=== PATIENT | female | born 1950 | race African-American/Black ===

== ENCOUNTER 2019-02-04 16:46 | Emergency (ER) | payer OTHER ==
[2019-02-04 18:07] VITALS: BP 120/78; PULSE 92; TEMP 98.6; BMI 30.4
[2019-02-04 18:49] LABS: BLOOD UREA NITROGEN 35.2 mg/dL (7-18); CALCIUM 9.6 mg/dL (8.5-10.1); CREATININE 1.3 mg/dL (0.55-1.3); POTASSIUM 4.6 mmol/L (3.5-5.1)
[2019-02-04 19:00] LABS: BASO % 0.4 % (0-2.0); EOS % 0.4 % (0-4.5); HEMATOCRIT 38.4 % (32.4-45.2); HEMOGLOBIN 12.7 GM/dL (10.7-15.3); MCHC 33.2 g/dl (32.0-36.0); MEAN CELL VOLUME 90.4 fl (80-96); MEAN PLT VOLUME 8.5 fl (7.5-11.1); MONO % 5.1 % (3.8-10.2); NEUT % 78.1 % (42.8-82.8); PLATELET COUNT 331 K/MM3 (134-434); RBC 4.24 M/mm3 (3.60-5.2); RDW 13.5 % (11.6-15.6); WHITE BLOOD COUNT 10.5 K/mm3 (4.0-10.0)
[2019-02-04] MEDS ORDERED: ONDANSETRON 4 MG/2 ML VIAL IVPB ONE (19:13)
[2019-02-04] MEDS ORDERED: ONDANSETRON 4 MG/2 ML VIAL ONE (19:29)
[2019-02-04] MEDS ORDERED: SODIUM CHLORIDE 1,000 ML IV STA (21:12)
--- NOTE | 2019-02-04 22:21 | PDOC ---
Documentation entered by Kevin Martinez SCRIBE, acting as scribe for Chiqui Hackett MD. Chiqui Hackett MD: This documentation has been prepared by the Juan james Elijah, SCRIBE, under my direction and personally reviewed by me in its entirety. I confirm that the documentation accurately reflects all work, treatment, procedures, and medical decision making performed by me. History of Present Illness - General Chief Complaint: Blood Sugar Problem Stated Complaint: VOMITING Time Seen by Provider: 02/04/19 18:35 History Source: Patient Exam Limitations: No Limitations - History of Present Illness Initial Comments: 02/04/19 18:50 Patient is a 68 year old female with a significant medical history of IDDM, HTN and DKA (Admitted in 2009, 2014) who presents to the ED via EMS with a near syncopal episode. Patient reports that they were outside talking with friends and while doing so had one episode of vomiting and began to feel "out of it." Patient notes that they have been feeling fine for the last few days but notes today that her glucose is elevated to the 400s. Denies Head Trauma, SOB, CP, and confusion. Allergies: Tetracycle Past History - Past Medical History Allergies/Adverse Reactions: Allergies Allergy/AdvReac Type Severity Reaction Status Date / Time tetracycline Allergy Verified 02/04/19 18:01 Home Medications: Ambulatory Orders Aspirin [Ecotrin] 81 mg PO DAILY 10/05/15 Canagliflozin [Invokana] 300 mg PO DAILY 10/05/15 Ezetimibe/Simvastatin [Vytorin 10-20 mg Tablet] 1 tab PO DAILY 10/05/15 Insulin Detemir [Levemir Flextouch] 25 unit SQ HS 10/05/15 Linagliptin/Metformin HCl [Jentadueto 2.5 mg-1000 mg Tab] 1 each PO BID Olmesartan/Hydrochlorothiazide [Benicar Hct 20-12.5 mg Tablet] 1 each PO DAILY 10/05/15 Anemia: Yes Asthma: No Cancer: No Cardiac Disorders: No CVA: No COPD: No CHF: No Dementia: No Diabetes: Yes GI Disorders: No Disorders: No HTN: Yes Hypercholesterolemia: Yes Liver Disease: No Seizures: No Thyroid Disease: No - Surgical History Abdominal Surgery: No Appendectomy: No Cardiac Surgery: No Cholecystectomy: No Lung Surgery: No Neurologic Surgery: No Orthopedic Surgery: No - Immunization History Immunization Up to Date: Yes - Suicide/Smoking/Psychosocial Hx Smoking History: Never smoked Hx Alcohol Use: No Drug/Substance Use Hx: No Substance Use Type: None Hx Substance Use Treatment: No Review of Systems - Review of Systems Comments:: 02/04/19 18:55 GENERAL/CONSTITUTIONAL: No fever or chills. No weakness. HEAD, EYES, EARS, NOSE AND THROAT: No change in vision. No ear pain or discharge. No sore throat. CARDIOVASCULAR: No chest pain or shortness of breath. RESPIRATORY: No cough, wheezing, or hemoptysis. GASTROINTESTINAL: +Vomiting No nausea, diarrhea or constipation. GENITOURINARY: No dysuria, frequency, or change in urination. MUSCULOSKELETAL: No joint or muscle swelling or pain. No neck or back pain. SKIN: No rash NEUROLOGIC: No headache, vertigo, loss of consciousness, or change in strength/ sensation. ENDOCRINE: No increased thirst. No abnormal weight change. HEMATOLOGIC/LYMPHATIC: No anemia, easy bleeding, or history of blood clots. ALLERGIC/IMMUNOLOGIC: No hives or skin allergy. *Physical Exam - Vital Signs Last Vital Signs Temp Pulse Resp BP Pulse Ox 98.6 F 92 H 18 120/78 99 02/04/19 17:50 02/04/19 17:50 02/04/19 17:50 02/04/19 17:50 02/04/19 17:50 - Physical Exam Comments: 02/04/19 18:55 GENERAL: Awake, alert, and fully oriented, in no acute distress HEAD: No signs of trauma EYES: PERRLA, EOMI, sclera anicteric, conjunctiva clear ENT: Auricles normal inspection, hearing grossly normal, nares patent, oropharynx clear without exudates. Moist mucosa NECK: Normal ROM, supple, no lymphadenopathy, JVD, or masses LUNGS: Breath sounds equal, clear to auscultation bilaterally. No wheezes, and no crackles HEART: Regular rate and rhythm, normal S1 and S2, no murmurs, rubs or gallops ABDOMEN: Soft, nontender, normoactive bowel sounds. No guarding, no rebound. No masses EXTREMITIES: Normal range of motion, no edema. No clubbing or cyanosis. No cords, erythema, or tenderness NEUROLOGICAL: Cranial nerves II through XII grossly intact. Normal speech, normal gait SKIN: Warm, Dry, normal turgor, no rashes or lesions noted. ED Treatment Course - LABORATORY CBC & Chemistry Diagram: 02/04/19 18:00 02/04/19 18:00 - ADDITIONAL ORDERS Additional order review: Laboratory Results 02/04/19 17:47 POC Glucometer 397 02/04/19 17:47 POC Glucometer 397 - RADIOLOGY Radiology Studies Ordered: Category Date Time Status HEAD CT WITHOUT CONTRAST [CT] Stat CT Scan 02/04/19 22:08 Ordered - Medications Given in the ED: ED Medications Discontinued Medications Generic Name Dose Route Start Last Admin Trade Name Manfredq PRN Reason Stop Dose Admin Ondansetron HCl 4 mg 02/04/19 19:13 02/04/19 19:36 Zofran Injection IVPB 02/04/19 19:14 4 mg ONCE ONE Administration Medical Decision Making - Medical Decision Making 02/04/19 22:19 68-year-old female who was outside today seated on a bench when she had an episode of vomiting and then her friends are concerned that she seemed slow to respond afterwards. She has no abdominal pain or chest pain or shortness of breath diff diag: Vasovagal/syncopal episode. EKG is normal sinus rhythm with no signs of ischemia, troponin is negative, labs were reviewed and she does have hyperglycemia but she is acetone negative. She has benign abdominal exam and it has had no further vomiting 02/05/19 00:44 scan of the head was negative for any acute intracranial pathology. Patient had 2 negative cardiac enzymes. Glucose is 266 and she was acetone negative. Impression vomiting/vasovagal episode Plan discharge home. Follow up with primary care physician *DC/Admit/Observation/Transfer Diagnosis at time of Disposition: Diabetes Qualifiers: Diabetes mellitus type: type 1 Diabetes mellitus complication status: with hyperglycemia Qualified Code(s): E10.65 - Type 1 diabetes mellitus with hyperglycemia Vomiting Qualifiers: Vomiting type: unspecified Vomiting Intractability: non-intractable Nausea presence: without nausea Qualified Code(s): R11.11 - Vomiting without nausea - Discharge Dispostion Disposition: HOME Condition at time of disposition: Stable - Referrals Referrals: Cayden Apodaca MD [Primary Care Provider] - - Patient Instructions Printed Discharge Instructions: DI for Diabetes Type 1 -- Adult, DI for Hyperglycemia -- Adult, DI for Vomiting -- Adult Additional Instructions: please follow up with your regular physician this week Return for any worsening symptoms - Post Discharge Activity
--- NOTE | 2019-02-05 15:28 | EKG ---
Test Reason : Blood Pressure : / mmHG Vent. Rate : 087 BPM Atrial Rate : 087 BPM P-R Int : 186 ms QRS Dur : 088 ms QT Int : 358 ms P-R-T Axes : 082 010 054 degrees QTc Int : 430 ms NORMAL SINUS RHYTHM LEFT ATRIAL ENLARGEMENT BORDERLINE ECG Confirmed by MD CHAD, ELIZABETH ([id number]) on 02/05/2019 3:28:00 PM Referred By: Confirmed By:ELIZABETH BONILLA MD
== END 2019-02-05 00:56 | disposition home or self-care (01) ==
LOC: JER 16:46
PROC: 3E0337Z Introduction of Electrolytic and Water Balance Substance into Peripheral Vein, Percutaneous Approach (ICD-10-PCS; principal; 2019-02-04)
PROC: 3E033GC Introduction of Other Therapeutic Substance into Peripheral Vein, Percutaneous Approach (ICD-10-PCS; 2019-02-04)
DX: E10.65 Type 1 diabetes mellitus with hyperglycemia (principal); Z79.4 Long term (current) use of insulin; I10 Essential (primary) hypertension; E78.00 Pure hypercholesterolemia, unspecified
CPT/HCPCS: 36415; 70450-TC; 80048; 82009; 82550; 82962; 83605; 84484; 85025; 93005; 93010; 96361; 96374; 99284-25; J7030

== ENCOUNTER 2022-09-24 18:16 | Inpatient (IN) | payer OTHER ==
[2022-09-24 18:53] VITALS: BMI 19.8
[2022-09-24] MEDS ORDERED: SODIUM CHLORIDE 500 ML IV STA (19:24)
[2022-09-24 20:15] LABS: BASO % 0.6 % (0-2.0); EOS % 0.2 % (0-4.5); HEMATOCRIT 31.6 % (32.4-45.2); HEMOGLOBIN 10.8 GM/dL (10.7-15.3); LYMPH % 4.7 % (8-40); MCH 29.5 pg (25.7-33.7); MCHC 34.3 g/dl (32.0-36.0); MEAN CELL VOLUME 86.1 fl (80-96); MEAN PLT VOLUME 6.8 fl (7.5-11.1); MONO % 5.4 % (3.8-10.2); NEUT % 89.1 % (42.8-82.8); PLATELET COUNT 493 10^3/uL (134-434); RBC 3.67 M/mm3 (3.60-5.2); RDW 15.5 % (11.6-15.6); WHITE BLOOD COUNT 10.7 K/mm3 (4.0-10.0)
[2022-09-24 20:28] LABS: INR 1.11 (0.83-1.09); PROTHROMBIN TIME (PATIENT) 12.9 SEC (9.7-13.0)
[2022-09-24 20:31] LABS: ACTIVATED PTT 26.4 SECONDS (25.2-36.5)
[2022-09-24 20:35] LABS: ALBUMIN 3.2 g/dl (3.4-5.0); BLOOD UREA NITROGEN 16.3 mg/dL (7-18); CALCIUM 9.3 mg/dL (8.5-10.1)
[2022-09-24 20:37] LABS: CREATININE 0.8 mg/dL (0.55-1.3)
[2022-09-24 20:39] LABS: BILIRUBIN,TOTAL 0.4 mg/dL (0.2-1); TOT PROT 6.9 g/dl (6.4-8.2)
[2022-09-24] MEDS ORDERED: DIPHTH,PERTUSS(ACELL),TET 0.5 ML DISP.SYRIN IM ONE ×2 (21:10→21:20)
[2022-09-24 22:35] LABS: EPI CELLS 5 /uL (0-25.1); HYALINE CASTS 10 /uL (0-3.1); PH,URINE 7.5 (5.0-8.0); URINE APPEARANCE CLOUDY; URINE BACTERIA 124 /uL (0-1359); URINE BILIRUBIN NEGATIVE (NEGATIVE); URINE COLOR YELLOW; URINE GLUCOSE (UA) 2+ (NEGATIVE); URINE KETONE 1+ (NEGATIVE); URINE LEUK ESTERASE 1+ (NEGATIVE); URINE NITRITE NEGATIVE (NEGATIVE); URINE PROTEIN 1+ (NEGATIVE); URINE UROBILINOGEN 0.2 mg/dL (0.2-1.0); URINE WBC 552 /uL (0-25.8)
[2022-09-24 22:36] LABS: URINE RBC 214.5 /uL (0-23.9)
[2022-09-25] MEDS ORDERED: ceFAZolin 2 GRAM PREMIX BAG IVPB ONE (01:13)
[2022-09-25] MEDS ORDERED: CEFAZOLIN SODIUM 2 GM in DEXTROSE 5%-WATER 100 ML IVPB ONE (01:30)
[2022-09-25] MEDS ORDERED: ceFAZolin SODIUM 1 GM VIAL ONE (01:36)
[2022-09-25 04:48] VITALS: BP 125/60; PULSE 91; RESP 16; TEMP 98.2
[2022-09-25] MEDS ORDERED: INSULIN SLIDING SCALE (NOVOLOG) 1 VIAL SQ SCH (07:00)
[2022-09-25] MEDS ORDERED: PATIENT'S OWN MEDICATION (NON-FORMULARY) (Olmesartan/Hydrochlorothiazide [Benicar Hct 20-1 PO SCH (10:00)
[2022-09-25] MEDS ORDERED: CEFTRIAXONE 1 GM in DEXTROSE 5%-WATER - 50 ML IVPB SCH (10:00)
[2022-09-25] MEDS ORDERED: ASPIRIN COATED 81 MG TABLET.EC PO SCH (10:00)
[2022-09-25] MEDS ORDERED: amLODIPine BESYLATE 5 MG TABLET (FP) PO SCH (10:00)
[2022-09-25] MEDS ORDERED: ATORVASTATIN CA 40 MG TABLET (FP) PO SCH (22:00)
[2022-09-25] MEDS ORDERED: INSULIN (LEVEMIR) 100 UNITS/ML UNITS SQ SCH (22:00)
== END 2022-09-25 04:52 | disposition short-term general hospital (02) | DRG 158 ==
LOC: JER 18:16 → JERBED 21:47 → OBSVTOIN 21:47
PROVIDERS: ADMIT Internal Medicine; ATTEND Internal Medicine
PROC: 0HQ1XZZ Repair Face Skin, External Approach (ICD-10-PCS; principal; 2022-09-24)
DX: S02.411A LeFort I fracture, initial encounter for closed fracture (principal); I69.354 Hemiplegia and hemiparesis following cerebral infarction affecting left non-dominant side; S01.21XA Laceration without foreign body of nose, initial encounter; I25.10 Atherosclerotic heart disease of native coronary artery without angina pectoris; I10 Essential (primary) hypertension; F32.9 Major depressive disorder, single episode, unspecified; R00.0 Tachycardia, unspecified; W17.89XA Other fall from one level to another, initial encounter; Y92.89 Other specified places as the place of occurrence of the external cause
CPT/HCPCS: 0241U-QW; 36415; 70450-TC; 70486-TC; 71046-TC-FY; 72125-TC; 80053; 81003; 83690; 84484; 85025; 85610; 85730; 86850; 86900; 86901; 87086; 90715; 99285-25

== ENCOUNTER 2023-04-11 13:38 | Inpatient (IN) | payer OTHER ==
[2023-04-11 15:28] LABS: BASO % 0.3 % (0-2.0); EOS % 0.2 % (0-4.5); HEMATOCRIT 36.4 % (32.4-45.2); HEMOGLOBIN 12.1 GM/dL (10.7-15.3); LYMPH % 6.1 % (8-40); MCH 29.7 pg (25.7-33.7); MCHC 33.4 g/dl (32.0-36.0); MEAN CELL VOLUME 89.1 fl (80-96); MEAN PLT VOLUME 7.3 fl (7.5-11.1); MONO % 5.7 % (3.8-10.2); NEUT % 87.7 % (42.8-82.8); PLATELET COUNT 390 10^3/uL (134-434); RBC 4.08 M/mm3 (3.60-5.2); RDW 14.4 % (11.6-15.6); WHITE BLOOD COUNT 14.5 K/mm3 (4.0-10.0)
[2023-04-11 15:53] LABS: CHLORIDE 97 mmol/L (98-107); POTASSIUM 4.2 mmol/L (3.5-5.1); SODIUM 138 mmol/L (136-145)
[2023-04-11 15:56] LABS: ALBUMIN 3.6 g/dl (3.4-5.0); CALCIUM 10.3 mg/dL (8.5-10.1)
[2023-04-11 15:57] LABS: ANION GAP 6 MMOL/L (8-16); BLOOD UREA NITROGEN 18.2 mg/dL (7-18); CO2 35 mmol/L (21-32); GLUCOSE,RANDOM 127 mg/dL (74-106)
[2023-04-11 16:00] LABS: CREATININE 0.6 mg/dL (0.55-1.3); SGOT/AST 9 U/L (15-37)
[2023-04-11 16:01] LABS: BILIRUBIN,TOTAL 0.7 mg/dL (0.2-1); TOT PROT 7.8 g/dl (6.4-8.2)
[2023-04-11 16:03] LABS: ALK PHOS 65 U/L (45-117)
[2023-04-11 16:06] LABS: SGPT/ALT < 6 U/L (13-61)
[2023-04-11 16:47] LABS: EPI CELLS 31 /uL (0-25.1); HYALINE CASTS 7 /uL (0-3.1); URINE APPEARANCE TURBID; URINE BILIRUBIN 1+ (NEGATIVE); URINE COLOR RED; URINE GLUCOSE (UA) NEGATIVE (NEGATIVE); URINE KETONE NEGATIVE (NEGATIVE); URINE LEUK ESTERASE 2+ (NEGATIVE); URINE NITRITE NEGATIVE (NEGATIVE); URINE PROTEIN 3+ (NEGATIVE); URINE UROBILINOGEN 0.2 mg/dL (0.2-1.0); URINE WBC 5226 /uL (0-25.8)
[2023-04-11] MEDS ORDERED: CEFTRIAXONE 1,000 MG in DEXTROSE 5%-WATER - 50 ML IVPB ONE (16:59)
[2023-04-11] MEDS ORDERED: CEFTRIAXONE 1 GM/50 ML BAG ONE (17:12)
[2023-04-11 17:38] LABS: URINE BACTERIA 12.9 /uL (0-1359); URINE RBC 24301.9 /uL (0-23.9)
[2023-04-11] MEDS ORDERED: ACETAMINOPHEN 1000 MG/100 ML BAG IVPB PRN (20:45)
[2023-04-11] MEDS ORDERED: CARBIDOPA/LEVODOPA 25/100 TABLET (FP) ONE (21:18)
[2023-04-11] MEDS: CARBIDOPA/LEVODOPA 25/100 TABLET (FP) PO SCH (21:30)
[2023-04-11] MEDS: INSULIN SLIDING SCALE (NOVOLOG) 1 VIAL SQ SCH (21:30)
[2023-04-11] MEDS: DEXTROSE 5%-0.45% SALINE 1,000 ML IV SCH (21:30)
[2023-04-12] MEDS: INSULIN SLIDING SCALE (NOVOLOG) 1 VIAL SQ SCH ×4 (06:30→22:34)
[2023-04-12 09:38] LABS: BASO % 0.3 % (0-2.0); EOS % 0.4 % (0-4.5); HEMATOCRIT 26.3 % (32.4-45.2); HEMOGLOBIN 8.8 GM/dL (10.7-15.3); LYMPH % 11.5 % (8-40); MCH 30.2 pg (25.7-33.7); MCHC 33.4 g/dl (32.0-36.0); MEAN CELL VOLUME 90.6 fl (80-96); MEAN PLT VOLUME 7.1 fl (7.5-11.1); NEUT % 80.8 % (42.8-82.8); PLATELET COUNT 369 10^3/uL (134-434); RBC 2.91 M/mm3 (3.60-5.2); RDW 14.1 % (11.6-15.6); WHITE BLOOD COUNT 8.9 K/mm3 (4.0-10.0)
[2023-04-12] MEDS ORDERED: PATIENT'S OWN MEDICATION (NON-FORMULARY) (Ferrous Sulfate [Ferrous Sulfate] 325 MG Tablet) PO SCH (10:00)
[2023-04-12 10:04] LABS: BLOOD UREA NITROGEN 19.7 mg/dL (7-18)
[2023-04-12 10:07] LABS: CREATININE 0.6 mg/dL (0.55-1.3)
[2023-04-12 10:08] LABS: BILIRUBIN,TOTAL 0.6 mg/dL (0.2-1)
[2023-04-12 10:16] LABS: ALBUMIN 2.5 g/dl (3.4-5.0); TOT PROT 5.5 g/dl (6.4-8.2)
[2023-04-12] MEDS: FERROUS SO4 325 MG TABLET (FP) PO SCH (10:33)
[2023-04-12] MEDS: CARBIDOPA/LEVODOPA 25/100 TABLET (FP) PO SCH ×2 (10:33→22:34)
[2023-04-12] MEDS: CEFTRIAXONE 1 GM in DEXTROSE 5%-WATER - 50 ML IVPB SCH (10:33)
[2023-04-12] MEDS ORDERED: PNEUMOC 20-VAL CONJ-DIP CRM/PF 0.5 ML SYRINGE IM ONE (10:43)
[2023-04-12] MEDS: DEXTROSE 5%-0.45% SALINE 1,000 ML IV SCH ×2 (15:52→22:33)
[2023-04-13] MEDS: DEXTROSE 5%-0.45% SALINE 1,000 ML IV SCH ×2 (07:00→18:28)
[2023-04-13] MEDS: INSULIN SLIDING SCALE (NOVOLOG) 1 VIAL SQ SCH ×4 (07:03→22:00)
[2023-04-13] MEDS: CEFTRIAXONE 1 GM in DEXTROSE 5%-WATER - 50 ML IVPB SCH (10:07)
[2023-04-13] MEDS: CARBIDOPA/LEVODOPA 25/100 TABLET (FP) PO SCH ×2 (10:07→22:00)
[2023-04-13] MEDS: FERROUS SO4 325 MG TABLET (FP) PO SCH (10:07)
[2023-04-13] MEDS ORDERED: ACETAMINOPHEN 325 MG TABLET (FP) PO ONE (14:00)
[2023-04-13 19:57] VITALS: BMI 19.6
[2023-04-14] MEDS: INSULIN SLIDING SCALE (NOVOLOG) 1 VIAL SQ SCH ×4 (06:49→22:59)
[2023-04-14] MEDS: DEXTROSE 5%-0.45% SALINE 1,000 ML IV SCH ×2 (06:54→23:00)
[2023-04-14] MEDS: CEFTRIAXONE 1 GM in DEXTROSE 5%-WATER - 50 ML IVPB SCH (10:01)
[2023-04-14] MEDS: CARBIDOPA/LEVODOPA 25/100 TABLET (FP) PO SCH ×2 (10:01→22:59)
[2023-04-14] MEDS: FERROUS SO4 325 MG TABLET (FP) PO SCH (10:01)
[2023-04-14 12:10] LABS: BASO % 0.3 % (0-2.0); EOS % 0.6 % (0-4.5); HEMATOCRIT 25.2 % (32.4-45.2); HEMOGLOBIN 8.7 GM/dL (10.7-15.3); LYMPH % 11.5 % (8-40); MCH 30.5 pg (25.7-33.7); MCHC 34.7 g/dl (32.0-36.0); MEAN CELL VOLUME 87.8 fl (80-96); MEAN PLT VOLUME 6.1 fl (7.5-11.1); MONO % 8.9 % (3.8-10.2); NEUT % 78.7 % (42.8-82.8); PLATELET COUNT 375 10^3/uL (134-434); RBC 2.87 M/mm3 (3.60-5.2); RDW 14.3 % (11.6-15.6); WHITE BLOOD COUNT 7.4 K/mm3 (4.0-10.0)
[2023-04-15] MEDS: INSULIN SLIDING SCALE (NOVOLOG) 1 VIAL SQ SCH ×4 (06:38→22:29)
[2023-04-15] MEDS: FERROUS SO4 325 MG TABLET (FP) PO SCH (10:52)
[2023-04-15] MEDS: CARBIDOPA/LEVODOPA 25/100 TABLET (FP) PO SCH ×2 (10:52→22:29)
[2023-04-15] MEDS: DEXTROSE 5%-0.45% SALINE 1,000 ML IV SCH (22:31)
[2023-04-16] MEDS: INSULIN SLIDING SCALE (NOVOLOG) 1 VIAL SQ SCH ×4 (06:31→21:24)
[2023-04-16] MEDS: FERROUS SO4 325 MG TABLET (FP) PO SCH (09:31)
[2023-04-16] MEDS: CARBIDOPA/LEVODOPA 25/100 TABLET (FP) PO SCH ×2 (09:31→21:25)
[2023-04-16 10:37] LABS: BASO % 0.4 % (0-2.0); EOS % 0.6 % (0-4.5); HEMATOCRIT 28.8 % (32.4-45.2); HEMOGLOBIN 9.9 GM/dL (10.7-15.3); LYMPH % 7.4 % (8-40); MCH 30.7 pg (25.7-33.7); MCHC 34.3 g/dl (32.0-36.0); MEAN CELL VOLUME 89.7 fl (80-96); MEAN PLT VOLUME 6.9 fl (7.5-11.1); MONO % 6.6 % (3.8-10.2); PLATELET COUNT 480 10^3/uL (134-434); RDW 13.8 % (11.6-15.6); WHITE BLOOD COUNT 9.2 K/mm3 (4.0-10.0)
[2023-04-16 10:40] LABS: CHLORIDE 103 mmol/L (98-107); SODIUM 139 mmol/L (136-145)
[2023-04-16 10:44] LABS: ANION GAP 8 MMOL/L (8-16); BLOOD UREA NITROGEN 7.8 mg/dL (7-18); CALCIUM 8.6 mg/dL (8.5-10.1); CO2 28 mmol/L (21-32); GLUCOSE,RANDOM 147 mg/dL (74-106)
[2023-04-16 10:45] LABS: ALBUMIN 2.4 g/dl (3.4-5.0)
[2023-04-16 10:47] LABS: SGOT/AST 5 U/L (15-37); SGPT/ALT < 6 U/L (13-61)
[2023-04-16 10:48] LABS: CREATININE 0.5 mg/dL (0.55-1.3)
[2023-04-16 10:49] LABS: BILIRUBIN,TOTAL 0.6 mg/dL (0.2-1); TOT PROT 5.7 g/dl (6.4-8.2)
[2023-04-16 10:50] LABS: ALK PHOS 49 U/L (45-117)
[2023-04-16 16:03] VITALS: RESP 18
[2023-04-16] MEDS: CEFTRIAXONE 1 GM in DEXTROSE 5%-WATER - 50 ML IVPB SCH (16:57)
[2023-04-17] MEDS: INSULIN SLIDING SCALE (NOVOLOG) 1 VIAL SQ SCH ×4 (06:11→21:53)
[2023-04-17] MEDS: FERROUS SO4 325 MG TABLET (FP) PO SCH (09:57)
[2023-04-17] MEDS: CARBIDOPA/LEVODOPA 25/100 TABLET (FP) PO SCH ×2 (09:57→21:53)
[2023-04-17] MEDS: CEFTRIAXONE 1 GM in DEXTROSE 5%-WATER - 50 ML IVPB SCH (09:58)
[2023-04-17] MEDS ORDERED: SENNOSIDES 8.6MG TABLET (FP) PO PRN (14:42)
[2023-04-17] MEDS: POLYETHYLENE GLYCOL (HEALTHYLAX) 3350 17 GM PACKET PO SCH (15:26)
[2023-04-18] MEDS: INSULIN SLIDING SCALE (NOVOLOG) 1 VIAL SQ SCH ×2 (06:01→11:36)
[2023-04-18] MEDS: CEFTRIAXONE 1 GM in DEXTROSE 5%-WATER - 50 ML IVPB SCH (09:53)
[2023-04-18] MEDS: POLYETHYLENE GLYCOL (HEALTHYLAX) 3350 17 GM PACKET PO SCH (09:54)
[2023-04-18] MEDS: CARBIDOPA/LEVODOPA 25/100 TABLET (FP) PO SCH (09:54)
[2023-04-18] MEDS: FERROUS SO4 325 MG TABLET (FP) PO SCH (09:54)
[2023-04-18 13:20] VITALS: BP 145/62; PULSE 103; TEMP 98.9
== END 2023-04-18 15:00 | DRG 686 ==
LOC: JER 13:38 → JERBED 20:00 → J5S 23:19
PROVIDERS: ADMIT Internal Medicine; ATTEND Internal Medicine
DX: C64.9 Malignant neoplasm of unspecified kidney, except renal pelvis (principal); E43 Unspecified severe protein-calorie malnutrition; G81.94 Hemiplegia, unspecified affecting left nondominant side; N39.0 Urinary tract infection, site not specified; I31.39 Other pericardial effusion (noninflammatory); Z68.1 Body mass index [BMI] 19.9 or less, adult; I25.10 Atherosclerotic heart disease of native coronary artery without angina pectoris; E78.5 Hyperlipidemia, unspecified; I10 Essential (primary) hypertension; E11.9 Type 2 diabetes mellitus without complications; G20.A1 Parkinson's disease without dyskinesia, without mention of fluctuations; F32.9 Major depressive disorder, single episode, unspecified; D63.0 Anemia in neoplastic disease; R31.9 Hematuria, unspecified; R50.9 Fever, unspecified; N93.9 Abnormal uterine and vaginal bleeding, unspecified
CPT/HCPCS: 36415; 74177-TC; 80053; 81003; 82272; 82962; 85025; 86850; 86900; 86901; 87040; 87086; 87635; 90677; 93005; 93010; 93306-TC; 93970-TC; 97116-GP; 97162-GP; 99285-25; Q9967

== ENCOUNTER 2023-06-03 18:26 | Inpatient (IN) | payer OTHER ==
[2023-06-03 19:33] LABS: HEMATOCRIT 30.5 % (32.4-45.2); HEMOGLOBIN 9.8 GM/dL (10.7-15.3); MCH 29.2 pg (25.7-33.7); MCHC 32.2 g/dl (32.0-36.0); MEAN CELL VOLUME 90.8 fl (80-96); MEAN PLT VOLUME 6.2 fl (7.5-11.1); PLATELET COUNT 459 10^3/uL (134-434); RBC 3.36 M/mm3 (3.60-5.2); RDW 14.1 % (11.6-15.6)
[2023-06-03 19:44] LABS: INR 1.18 (0.83-1.09); PROTHROMBIN TIME (PATIENT) 13.7 SEC (9.7-13.0)
[2023-06-03 19:47] LABS: ACTIVATED PTT 27.5 SECONDS (25.2-36.5)
[2023-06-03 19:50] LABS: CHLORIDE 99 mmol/L (98-107); POTASSIUM 5.4 mmol/L (3.5-5.1); SODIUM 136 mmol/L (136-145)
[2023-06-03 19:51] LABS: CALCIUM 10.3 mg/dL (8.5-10.1)
[2023-06-03 19:52] LABS: ALBUMIN 2.5 g/dl (3.4-5.0); ANION GAP 7 mmol/L (4-13); CO2 30 mmol/L (21-32)
[2023-06-03 19:57] VITALS: BMI 19.6
[2023-06-03] MEDS: SODIUM CHLORIDE 1,000 ML IV SCH (20:10)
[2023-06-03 20:20] LABS: ALK PHOS 66 U/L (45-117); BILIRUBIN,TOTAL 0.3 mg/dL (0.2-1); CHOLESTEROL 240 mg/dL (50-200); CREATININE 0.6 mg/dL (0.55-1.3); GLUCOSE,RANDOM 160 mg/dL (74-106); HDL CHOLESTEROL 69 mg/dL (40-60); LDL CHOLESTEROL (ONLY SJRH) 136 mg/dL (5-100); SGOT/AST 9 U/L (15-37); SGPT/ALT < 6 U/L (13-61); TOT PROT 6.3 g/dl (6.4-8.2)
[2023-06-03 20:50] LABS: EPI CELLS 32 /uL (0-25.1); HYALINE CASTS 2 /uL (0-3.1); URINE APPEARANCE TURBID; URINE BACTERIA 35 /uL (0-1359); URINE BILIRUBIN NEGATIVE (NEGATIVE); URINE COLOR YELLOW; URINE GLUCOSE (UA) NEGATIVE (NEGATIVE); URINE KETONE TRACE (NEGATIVE); URINE LEUK ESTERASE 2+ (NEGATIVE); URINE NITRITE NEGATIVE (NEGATIVE); URINE PROTEIN 1+ (NEGATIVE); URINE RBC 9 /uL (0-23.9); URINE WBC 293 /uL (0-25.8)
[2023-06-03] MEDS ORDERED: CEFTRIAXONE 1,000 MG in DEXTROSE 5%-WATER - 50 ML IVPB ONE (20:51)
[2023-06-03 20:54] LABS: ANISOCYTOSIS 1+; MACROCYTOSIS 0
[2023-06-03] MEDS ORDERED: CEFTRIAXONE 1 GM/50 ML BAG ONE (21:37)
[2023-06-03 22:07] LABS: URINE CRYSTALS NONE SEEN /hpf
[2023-06-04] MEDS ORDERED: SENNOSIDES 8.6MG TABLET (FP) PO PRN (01:58)
[2023-06-04 06:33] LABS: HEMATOCRIT 32.5 % (32.4-45.2); HEMOGLOBIN 10.7 GM/dL (10.7-15.3); MCH 30.2 pg (25.7-33.7); MCHC 32.9 g/dl (32.0-36.0); MEAN CELL VOLUME 91.6 fl (80-96); MEAN PLT VOLUME 7.1 fl (7.5-11.1); PLATELET COUNT 417 10^3/uL (134-434); RBC 3.55 M/mm3 (3.60-5.2); WHITE BLOOD COUNT 16.1 K/mm3 (4.0-10.0)
[2023-06-04 06:39] LABS: CHLORIDE 100 mmol/L (98-107); POTASSIUM 4.6 mmol/L (3.5-5.1); SODIUM 136 mmol/L (136-145)
[2023-06-04 06:41] LABS: ALBUMIN 2.3 g/dl (3.4-5.0); ANION GAP 4 mmol/L (4-13); BLOOD UREA NITROGEN 17.6 mg/dL (7-18); CALCIUM 10.9 mg/dL (8.5-10.1); CO2 32 mmol/L (21-32); GLUCOSE,RANDOM 120 mg/dL (74-106)
[2023-06-04 06:42] LABS: MAGNESIUM 1.6 mg/dL (1.8-2.4)
[2023-06-04 06:44] LABS: SGPT/ALT < 6 U/L (13-61)
[2023-06-04 06:45] LABS: CREATININE 0.4 mg/dL (0.55-1.3); SGOT/AST 9 U/L (15-37)
[2023-06-04 06:46] LABS: BILIRUBIN,TOTAL 0.3 mg/dL (0.2-1); TOT PROT 5.9 g/dl (6.4-8.2)
[2023-06-04 06:47] LABS: ALK PHOS 59 U/L (45-117)
[2023-06-04] MEDS: INSULIN SLIDING SCALE (NOVOLOG) 1 VIAL SQ SCH ×4 (07:24→23:44)
[2023-06-04] MEDS: POLYETHYLENE GLYCOL (HEALTHYLAX) 3350 17 GM PACKET PO SCH (09:58)
[2023-06-04] MEDS: CARBIDOPA/LEVODOPA 25/100 TABLET (FP) PO SCH ×2 (09:58→23:45)
[2023-06-04] MEDS: PANTOPRAZOLE 20 MG TABLET PO SCH (09:58)
[2023-06-04] MEDS: FERROUS SO4 325 MG TABLET (FP) PO SCH (09:58)
[2023-06-04] MEDS ORDERED: ENOXAPARIN NA (PORCINE) 40 MG/0.4 ML DISP.SYRIN SQ ONE (09:59)
[2023-06-04] MEDS ORDERED: CEFTRIAXONE 1 GM/50 ML BAG ONE (09:59)
[2023-06-04] MEDS: CEFTRIAXONE 1 GM in DEXTROSE 5%-WATER - 50 ML IVPB SCH (10:03)
[2023-06-04] MEDS: ENOXAPARIN NA (PORCINE) 40 MG/0.4 ML DISP.SYRIN SQ SCH (10:03)
[2023-06-04] MEDS: SODIUM CHLORIDE 1,000 ML IV SCH (18:32)
[2023-06-05] MEDS ORDERED: POLYETHYLENE GLYCOL (HEALTHYLAX) 3350 17 GM PACKET ONE (08:30)
[2023-06-05] MEDS ORDERED: FERROUS SO4 325 MG TABLET (FP) ONE (08:31)
[2023-06-05] MEDS ORDERED: PANTOPRAZOLE 20 MG TABLET PO ONE (08:31)
[2023-06-05] MEDS ORDERED: ENOXAPARIN NA (PORCINE) 40 MG/0.4 ML DISP.SYRIN SQ ONE (08:31)
[2023-06-05] MEDS ORDERED: CARBIDOPA/LEVODOPA 25/100 TABLET (FP) ONE (08:31)
[2023-06-05] MEDS ORDERED: CEFTRIAXONE 1 GM/50 ML BAG ONE (08:32)
[2023-06-05] MEDS ORDERED: IRON SUCROSE INJECTION 200 MG in SODIUM CHLORIDE 90 ML IVPB ONE (10:00)
[2023-06-05] MEDS: PANTOPRAZOLE 20 MG TABLET PO SCH (10:00)
[2023-06-05] MEDS: POLYETHYLENE GLYCOL (HEALTHYLAX) 3350 17 GM PACKET PO SCH (10:00)
[2023-06-05] MEDS: FERROUS SO4 325 MG TABLET (FP) PO SCH (10:00)
[2023-06-05] MEDS: CARBIDOPA/LEVODOPA 25/100 TABLET (FP) PO SCH ×2 (10:00→21:45)
[2023-06-05] MEDS: INSULIN SLIDING SCALE (NOVOLOG) 1 VIAL SQ SCH ×4 (10:26→21:49)
[2023-06-05] MEDS: ENOXAPARIN NA (PORCINE) 40 MG/0.4 ML DISP.SYRIN SQ SCH (10:26)
[2023-06-05] MEDS: CEFTRIAXONE 1 GM in DEXTROSE 5%-WATER - 50 ML IVPB SCH (11:24)
[2023-06-05] MEDS ORDERED: INSULIN (NOVOLOG) ASPART 100 UNITS/ML 10ML VIAL ONE (21:47)
[2023-06-06] MEDS: INSULIN SLIDING SCALE (NOVOLOG) 1 VIAL SQ SCH ×3 (06:46→17:50)
[2023-06-06] MEDS: ENOXAPARIN NA (PORCINE) 40 MG/0.4 ML DISP.SYRIN SQ SCH (10:41)
[2023-06-06] MEDS: POLYETHYLENE GLYCOL (HEALTHYLAX) 3350 17 GM PACKET PO SCH (10:41)
[2023-06-06] MEDS: CARBIDOPA/LEVODOPA 25/100 TABLET (FP) PO SCH (10:44)
[2023-06-06] MEDS: FERROUS SO4 325 MG TABLET (FP) PO SCH (10:45)
[2023-06-06] MEDS: PANTOPRAZOLE 20 MG TABLET PO SCH (10:45)
[2023-06-06] MEDS: CEFTRIAXONE 1 GM in DEXTROSE 5%-WATER - 50 ML IVPB SCH (10:46)
[2023-06-06 14:50] VITALS: BP 152/77; PULSE 107; RESP 20; TEMP 98.7
== END 2023-06-06 18:25 | DRG 689 ==
LOC: JER 18:26 → JERBED 21:04 → OBSVTOIN 23:50 → J7W 06-05 10:38
PROVIDERS: ADMIT Internal Medicine; ATTEND Family Medicine
PROC: 02HV33Z Insertion of Infusion Device into Superior Vena Cava, Percutaneous Approach (ICD-10-PCS; principal; 2023-06-06)
PROC: B548ZZA Ultrasonography of Superior Vena Cava, Guidance (ICD-10-PCS; 2023-06-06)
DX: N39.0 Urinary tract infection, site not specified (principal); G93.41 Metabolic encephalopathy; L89.313 Pressure ulcer of right buttock, stage 3; I69.354 Hemiplegia and hemiparesis following cerebral infarction affecting left non-dominant side; J98.11 Atelectasis; L89.312 Pressure ulcer of right buttock, stage 2; I10 Essential (primary) hypertension; G20.A1 Parkinson's disease without dyskinesia, without mention of fluctuations; Z79.4 Long term (current) use of insulin; D64.9 Anemia, unspecified; E11.65 Type 2 diabetes mellitus with hyperglycemia; E87.5 Hyperkalemia; I25.10 Atherosclerotic heart disease of native coronary artery without angina pectoris
CPT/HCPCS: 0241U-QW; 36415; 36569; 70450-TC; 71045-TC-FY; 77001-TC-FY; 80053; 80061; 81003; 82550; 82728; 82962; 83036; 83540; 83550; 83735; 84484; 85025; 85027; 85045; 85610; 85730; 86850; 86900; 86901; 87086; 93005; 93010; 97161-GP; 99285-25; C1751; G0378; J1756